=== PATIENT | male | born 1970 | race Caucasian/White ===

== ENCOUNTER 2017-11-07 15:10 | Emergency (ER) | payer OTHER, MEDICAID ==
[~2017-11-07] VITALS: Ht 175.3 cm; Wt 77.1 kg
[2017-11-07 15:10] VITALS: BP_SYST 147
== END 2017-11-07 15:46 | disposition home or self-care (01) ==
LOC: SED 15:10
DX: R21 Rash and other nonspecific skin eruption (principal); R20.2 Paresthesia of skin; F15.10 Other stimulant abuse, uncomplicated
CPT/HCPCS: 99283